=== PATIENT | female | born 1970 | race Caucasian/White ===

== ENCOUNTER 2016-08-13 15:45 | Emergency (ER) | payer OTHER ==
[~2016-08-13] VITALS: Ht 154.9 cm; Wt 81.6 kg
[~2016-08-13 15:45] MED LIST: BENTYL20 M1 PO; CIPRO500 M1 PO; DIAZEPAM5 M1 PO; ESCITALOPRAM OX10 MG PO; FLAGYL500 MG PO; MEDROL4 M2 PO; PERCOCET 5-3251 EACH PO; PRILOSEC OTC20 M1 PO; PROAIR HFA8.5 GM INH; TESSALON PERLE100 M1 PO; VENTOLIN HFA18 GM INH; ZOFRAN4 M2 PO
--- NOTE | 2016-08-13 19:08 | ED ANKLE/FOOT INJURY COMPLAINT ---
History of Present Illness General Chief Complaint: Foot or Ankle Injury Stated Complaint: LEFT AND ANKLE PAIN S/P FALL SAT SEEN AT [place] Source: patient, old records Exam Limitations: no limitations Vital Signs & Intake/Output Vital Signs & Intake/Output Vital Signs Date Time Temp Pulse Resp B/P Pulse O2 O2 Flow FiO2 Ox Delivery Rate 08/13 193 98.0 73 18 110/74 96 08/13 1614 96.2 70 18 106/72 98 Room Air ED Intake and Output 08/14 0000 08/13 1200 Intake Total 30 Output Total Balance 30 Intake, Oral 30 Patient 180 lb Weight Allergies Coded Allergies: Penicillins (ANAPHYLAXIS 11/27/15) codeine (VOMITING 11/27/15) Reconcile Medications Diazepam 5 MG TABLET 1 TAB PO BIDP PRN NECK PAIN (Reported) Escitalopram Oxalate 10 MG TABLET 1 TAB PO DAILY DEPRESSION (Reported) Hydrocodone/Acetaminophen ([place] 5-325 Tablet) 5 MG-325 MG TABLET 1 TAB PO Q4- 6 PRN PRN pain Omeprazole Magnesium (Prilosec Otc) 20 MG TABLET.DR 1 TAB PO DAILY GERD ( Reported) Triage Note: C/O PAIN TO TOP OF LEFT FOOT AND ANKLE, S/P FALL ON 08/09, WAS SEEN AT [place], HAD XRAYS DONE, (NEGATIVE). WAS GIVEN MOTRIN FOR PAIN, FEELING WORSE WITH INCREASEING PAIN. Triage Nurses Notes Reviewed? yes Occurred: last week Duration: day(s): (5), constant Timing: recent history Severity: moderate, severe Severity Numbers: 10 Pain/Injury Location: Left: Foot, Ankle. Method of Injury: fall Modifying Factors: Improves With: rest. Worsens With: movement. Associated Symptoms: swelling HPI: 45-year-old female presents emergency room for evaluation complaining of sudden, persistent sharp severe aching 10 out of 10 left foot and ankle pain status post fall 5 days ago. The patient states she was seen at [place] emergency room at the time and had x-rays performed of her foot and ankle that were unremarkable. She states that the Babatunde wrap made the pain worse and she tried a pneumatic boot at home as well without improvement. There is been no recent new injury or trauma she denies any radiation of pain up her leg no back pain numbness or tingling. She denies any overlying skin changes. There is no other injury with the fall per the patient (LANCE KITCHEN) Past History Travel History Traveled to [place] past 21 day No Medical History Any Pertinent Medical History? see below for history Neurological: CVA EENT: NONE Cardiovascular: NONE Respiratory: asthma Gastrointestinal: diverticulitis, GERD Hepatic: NONE Renal: NONE Musculoskeletal: NONE Psychiatric: depression Endocrine: diabetes Blood Disorders: NONE Surgical History Surgical History: appendectomy, Psychosocial History What is your primary language Venezuelan Tobacco Use: Never used ETOH Use: denies use Family History Hx Contributory? No (LANCE KITCHEN) Review of Systems Review of Systems Constitutional: Reports: see HPI. All Other Systems: Reviewed and Negative Comments Review of systems: See HPI, All other systems negative. Constitutional, no chills no fever, no malaise HEENT: N no sore throat no congestion Cardiovascular: No chest pain , no palpitation Skin, no rashes, no change in skin Respiratory: No dyspnea no cough no sputum GI: No nausea no vomiting, no diarrhea, : No dysuria No hematuria Muscle skeletal: joint pain, no joint swelling, no back pain, no neck pain, Neurologic: No numbness no headache Psych: No stress Heme/endocrine: No bruising no bleeding Immunology: No lymphadenopathy (LANCE KITCHEN) Physical Exam Physical Exam General Appearance: well developed/nourished, no apparent distress, alert, awake Leg/Knee/Thigh Left: normal range of motion Comments: Well-developed well-nourished patient in no apparent distress. HEENT: Atraumatic, extraocular motion intact Neck: Supple, FROM, no lymphadenopathy Back: FROM, Nontender Cardiovascular: Regular rate and rhythms no murmurs rubs or gallops, Respiratory: Chest nontender.There were no bony deformities, no asymmetry. No respiratory distress. Patient speaking in full complete sentences. Breath sounds clear to auscultation bilaterally: NO W/R/R Upper Extremities: full range of motion Hip/Pelvis: Atraumatic/Stable. FROM. Knee: Atraumatic/stable. FROM. No joint swelling, no effusion Leg: Atraumatic. Nontender. No edema, 5 out of 5 strength in the lower extremity, normal dorsiflexion of great toe bilaterally, gross sensation is intact, patellar tendon reflex 2+ bilaterally. Ankle/Foot: There is tenderness to palpation over the proximal dorsal left foot there is no ecchymosis, Atraumatic/stable. Skin intact. FROM. No swelling, no effusion. No laxity on exam Pulses: Normal/equal DP/PT pulses bilaterally. Brisk cap refill Neuro: Alert and oriented x3 Skin: Warm & dry;No appreciable rash on exposed skin Psych: Mood affect normal, normal memory normal judgment. (LANCE KITCHEN) Progress Differential Diagnosis: cellulitis, gout, fracture, dislocation, sprain, contusion, compartmental syndrome Plan of Care: Current Medications Sig/Naveed Start time Last Medication Dose Stop Time Status Admin Acetaminophen/ 1 TAB ONCE ONE 08/13 1929 AC Hydrocodone Bitart 08/13 1930 (Vicodin) Patient is declining repeat x-rays, Vicodin 1 ordered which she states she has had before the patient states that she has a pneumatic boot and Babatunde wrap at home declining one of the same today, discussed the patient plan of care need for close follow-up with her primary care physician as well as orthopedist information provided for Dr. Campbell follow-up X-rays were reviewed from the patient's previous visit to [facility] in which the report was provided. Ankle showed no acute fracture dislocation. Ankle mortise is symmetric no significant degenerative changes are present soft tissues are unremarkable. The foot showed no acute fracture or dislocation. The soft tissues radiographically unremarkable. No radiopaque foreign body seen. A small plantar calcaneal bone spur is noted. The report was signed by Dr. cynthia jean baptiste 08/09/16 (LANCE KITCHEN) Departure Departure Time of Disposition: 1915 Disposition: HOME OR SELF CARE Condition: Stable Clinical Impression Primary Impression: Ankle sprain Referrals: DORIS LOU,VIKKI Olivarez (PCP/Family) Additional Instructions: Rest ice and otrin for pain and Vicodin for breakthrough pain use caution as this medication will make you drowsy no driving or drinking alcohol while taking. Follow-up with her primary care physician next week if symptoms persist continue wearing the Babatunde wrap or leg immobilizer that you have at home. Your prescription was sent to your pharmacy Departure Forms: Customer Survey General Discharge Information Prescriptions: Current Visit Scripts Hydrocodone/Acetaminophen ([place] 5-325 Tablet) 1 TAB PO Q4-6 PRN PRN pain #10 TAB (LANCE KITCHEN) PA/WATER METER INSTALLER Co-Sign Statement Statement: ED Attending supervision documentation- [] I saw and evaluated the patient. I have also reviewed all the pertinent lab results and diagnostic results. I agree with the findings and the plan of care as documented in the PA's/WATER METER INSTALLER's documentation. [X] I have reviewed the ED Record and agree with the PA's/WATER METER INSTALLER's documentation. [] Additions or exceptions (if any) to the PAs/WATER METER INSTALLER's note and plan are summarized below: [] (BRIANNA LOU,RASTA)
[2016-08-13] MEDS ORDERED: NORCO 5-325 TA1 EACH PO (19:18)
[2016-08-13 19:39] VITALS: BP 110/74
== END 2016-08-13 19:40 ==
LOC: ERH 15:45
DX: S93.402A Sprain of unspecified ligament of left ankle, initial encounter (principal); W19.XXXA Unspecified fall, initial encounter